=== PATIENT | female | born 1955 | race Caucasian/White ===

== ENCOUNTER → 2024-04-17 | Outpatient (CLI) | payer MEDICARE, BC, SELFPAY ==
[2024-04-17 10:14] LABS: Alanine Aminotransferase 25 U/L (10-49); Albumin, Serum 4.5 gm/dL (3.4-4.8); Alkaline Phosphatase 64 U/L (46-116); Aspartate Amino Transferase 13 U/L (0-34); Bilirubin,Direct 0.2 mg/dL (0.0-0.3); Bilirubin,Total 0.7 mg/dL (0.3-1.2); Cardiac Risk Estimate 2.2 RATIO (3.7-5.6); Cholesterol 109 mg/dL (132-200); HDL Cholesterol 49 mg/dL (40-60); LDL Cholesterol,Calculated 46 mg/dL (0-130); Total Protein 6.9 gm/dL (5.7-8.2); Triglycerides 70 mg/dL (30-150)
== END | disposition home or self-care (01) ==
PROVIDERS: PCP Family Medicine; Referring Provider Internal Medicine Cardiovascular Disease; Visit Provider Internal Medicine Cardiovascular Disease
DX: E78.00 Pure hypercholesterolemia, unspecified (principal); Z95.1 Presence of aortocoronary bypass graft
CPT/HCPCS: 36415; 80061; 80076

== ENCOUNTER → 2024-06-19 | Outpatient (CLI) | payer MEDICARE, BC, SELFPAY ==
[2024-06-19 09:13] LABS: Cardiac Risk Estimate 2.8 RATIO (3.7-5.6); Cholesterol 133 mg/dL (132-200); HDL Cholesterol 47 mg/dL (40-60); LDL Cholesterol,Calculated 58 mg/dL (0-130); Triglycerides 142 mg/dL (30-150)
== END | disposition home or self-care (01) ==
LOC: COPL 07:50
PROVIDERS: PCP Family Medicine; Referring Provider Internal Medicine Cardiovascular Disease; Visit Provider Internal Medicine Cardiovascular Disease
DX: E78.00 Pure hypercholesterolemia, unspecified (principal); Z95.1 Presence of aortocoronary bypass graft; I25.10 Atherosclerotic heart disease of native coronary artery without angina pectoris
CPT/HCPCS: 36415; 80061

== ENCOUNTER → 2024-08-31 | Outpatient (CLI) | payer MEDICARE, BC, SELFPAY ==
--- NOTE | 2024-08-31 14:22 | XR_ITS ---
Examination: Wrist, right 3 views Technique: Wrist AP, oblique, lateral 3 views Date and time of exam: August 31, 2024 1425 hours INDICATIONS: Right wrist pain 3 months. FINDINGS: Significant osteopenia. No fracture or dislocation. Mild narrowing radiocarpal intercarpal and first carpometacarpal joints No erosive arthritis No avascular necrosis IMPRESSION: Mild narrowing radiocarpal intercarpal and first carpometacarpal joints
--- NOTE | 2024-08-31 14:22 | XR_ITS ---
Examination: Hand, right 3 views Technique: Hand AP, oblique, lateral 3 views Date and time of exam: August 31, 2024 1429 hours INDICATIONS: Right hand paresthesias 3 months FINDINGS: Significant osteopenia. No fracture or dislocation Mild diffuse narrowing joints of the wrists and hands No erosive arthritis IMPRESSION: Mild diffuse narrowing joints of the wrist and hand
== END | disposition home or self-care (01) ==
PROVIDERS: PCP Nurse Practitioner Family
DX: M25.841 Other specified joint disorders, right hand (principal); M25.831 Other specified joint disorders, right wrist
CPT/HCPCS: 73110; 73130

== ENCOUNTER → 2024-09-07 | Outpatient (CLI) | payer MEDICARE, BC, SELFPAY ==
[2024-09-07 10:11] LABS: Basophils # (Auto) 0.1 Thou/mm3 (0.0-0.2); Basophils % (Auto) 1 % (0-2.5); Eosinophils # (Auto) 0.5 Thou/mm3 (0.0-0.5); Eosinophils % (Auto) 6 % (0-10); Hematocrit 43.8 % (36.0-46.0); Hemoglobin 14.4 g/dL (12.0-16.0); Immature Granulocytes Auto 0.02 Thou/mm3 (0.00-0.00); Lymphocytes # (Auto) 2.6 Thou/mm3 (1.0-4.8); Lymphocytes % (Auto) 32 % (10-50); Mean Corpuscular HGB Conc 32.9 g/dl (31.0-37.0); Mean Corpuscular Hemoglobin 29.9 pg (25.0-35.0); Mean Corpuscular Volume 91 fL (80-100); Monocytes # (Auto) 0.6 Thou/mm3 (0.0-0.8); Monocytes % (Auto) 8 % (0-12); Neutrophils # (Auto) 4.3 Thou/mm3 (1.8-7.7); Neutrophils % (Auto) 53 % (37-80); Nucleated Red Blood Cell # 0.00 Thou/mm3 (0.00-0.00); Nucleated Red Blood Cell % 0 /100 WBC (0); Platelet Count 268 Thou/mm3 (140-440); RDW Standard Deviation 43.1 fL (36.4-46.3); Red Blood Count 4.82 Miln/mm3 (4.00-5.20); White Blood Count 8.2 Thou/mm3 (3.6-11.0)
[2024-09-07 10:39] LABS: Alanine Aminotransferase 24 U/L (10-49); Albumin, Serum 4.3 gm/dL (3.4-4.8); Albumin/Globulin Ratio 1.7 (1.2-2.2); Alkaline Phosphatase 65 U/L (46-116); Anion Gap 6 (7-16); Aspartate Amino Transferase 24 U/L (0-34); BUN/Creatinine Ratio 17 Ratio (12-20); Bilirubin,Total 0.6 mg/dL (0.3-1.2); Blood Urea Nitrogen 17 mg/dL (9-23); Calcium 9.2 mg/dL (8.3-10.6); Calcium (Corrected) 9.2 mg/dL (8.5-10.1); Carbon Dioxide 28.6 mMol/L (20.0-31.0); Cardiac Risk Estimate 4.4 RATIO (3.7-5.6); Chloride 108 mMol/L (98-107); Cholesterol 231 mg/dL (132-200); Creatinine (Component) 1.0 mg/dL (0.6-1.3); Globulin 2.6 gm/dL (2.3-3.5); Glucose 101 mg/dL (74-106); HDL Cholesterol 53 mg/dL (40-60); LDL Cholesterol,Calculated 153 mg/dL (0-130); Osmolality,Calculated 286 (275-295); Potassium 4.5 mMol/L (3.4-5.1); Sodium 143 mMol/L (136-145); Thyroid Stimulating Hormone 1.66 uIU/mL (0.55-4.78); Total Protein 6.9 gm/dL (5.7-8.2); Triglycerides 125 mg/dL (30-150); eGFR > 60 See Note
== END | disposition home or self-care (01) ==
LOC: COPL 09:45
PROVIDERS: PCP Nurse Practitioner Family; Referring Provider Nurse Practitioner Family; Visit Provider Internal Medicine Cardiovascular Disease
DX: E78.00 Pure hypercholesterolemia, unspecified (principal); I10 Essential (primary) hypertension; E78.5 Hyperlipidemia, unspecified
CPT/HCPCS: 36415; 80053; 80061; 84443; 85025

== ENCOUNTER → 2024-11-20 | Outpatient (CLI) | payer MEDICARE, BC, SELFPAY ==
[2024-11-20 13:33] LABS: Cardiac Risk Estimate 3.4 RATIO (3.7-5.6); Cholesterol 175 mg/dL (132-200); HDL Cholesterol 51 mg/dL (40-60); LDL Cholesterol,Calculated 85 mg/dL (0-130); Triglycerides 195 mg/dL (30-150)
== END | disposition home or self-care (01) ==
LOC: COPL 12:10
PROVIDERS: PCP Nurse Practitioner Family; Referring Provider Internal Medicine Cardiovascular Disease; Visit Provider Internal Medicine Cardiovascular Disease
DX: Z95.1 Presence of aortocoronary bypass graft (principal); E78.00 Pure hypercholesterolemia, unspecified
CPT/HCPCS: 36415; 80061

== ENCOUNTER → 2025-01-01 | Outpatient (CLI) | payer MEDICARE, BC, SELFPAY ==
--- NOTE | 2025-01-01 13:00 | XR_ITS ---
Examination: Screening digital mammography, bilateral Computer aided detection 3-D breast Tomosynthesis, bilateral Date and time of exam: January 01, 2025, 1252 hours Compared to mammograms dating to April 04, 2008 Indication: Screening Technique: Nonmagnified MLO, CC views of the breasts to been obtained, reconstructed from 3-D Tomosynthesis images. R2 computer aided detection program utilized for evaluation of suspicious masses and/or abnormal calcifications. 3-D Tomosynthesis images obtained. Findings: Scattered areas of fibroglandular density. Benign calcifications. No interval suspicious masses Impression: BI-RADS category II: Benign Findings. Recommend 1 year follow-up mammogram.
--- NOTE | 2025-01-01 13:15 | XR_ITS ---
EXAMINATION: Thyroid sonography complete TECHNIQUE: Grayscale sonographic images thyroid lobes INDICATIONS: Thyroid sonogram April 19, 2023 small solid nodule midportion left thyroid 4 mm Date and time: January 01, 2025, 1220 hours, comparison 10/20/2023 FINDINGS: Right thyroid 4.5 cm Mid pole cyst 7 x 5 mm Lower pole cyst 3 x 4 mm Left thyroid 4.3 cm Midpole nodule 5 x 3 mm IMPRESSION: Small mid pole left thyroid nodule
== END | disposition home or self-care (01) ==
LOC: CDIM 12:12
PROVIDERS: Referring Provider Nurse Practitioner Family; Visit Provider Nurse Practitioner Family
DX: Z12.31 Encounter for screening mammogram for malignant neoplasm of breast (principal); R92.323 Mammographic fibroglandular density, bilateral breasts; R92.1 Mammographic calcification found on diagnostic imaging of breast; E04.1 Nontoxic single thyroid nodule
CPT/HCPCS: 76536; 77063; 77067